=== PATIENT | female | born 1935 | race Caucasian/White ===

== ENCOUNTER 2019-04-27 13:11 | Inpatient (IN) ==
[2019-04-27] MEDS: DUONEB (A & A) INH PRN ×2 (16:07→23:52)
[2019-04-27 16:09] LABS: BASO# 0.06 X1000 (0.0-0.2); BASO% 0.5 % (0.0-0.8); EOS# 0.03 X1000 (0.0-0.7); EOS% 0.2 % (0.0-10.0); HEMATOCRIT 50.1 % (37.0-47.0); HEMOGLOBIN 15.5 g/dL (12.0-16.0); IMM GRAN# 0.13 X1000 (0.0-0.04); LYMPH# 1.78 X1000 (1.2-3.4); LYMPH% 14.2 % (20.5-51.1); MCH 29.2 PG (27-31); MCHC 30.9 g/dL (33-37); MCV 94.4 FL (81-99); MONO# 1.08 X1000 (0.11-0.59); MONO% 8.6 % (1.7-9.3); MPV 11.7 FL (7.4-10.4); NEUT# 9.47 X1000 (1.4-6.5); NEUT% 75.5 % (42.2-75.2); PLT 204 X1000 (130-400); RBC 5.31 XMIL (4.2-5.4); RDW 14.3 % (11.5-14.5); WBC 12.55 X1000 (4.8-10.8)
[2019-04-27 16:13] LABS: ALLEN TEST YES; BE 12.2 mmoll (-3.0-3.0); BLOOD TYPE ARTERIAL; HCO3-(ACT) 34.4 mmoll (20.0-26.0); O2HB 95.9 % (95.0-99.0); PO2(98.6) 114 mmHg (60-100); SAMPLE BLOOD; SAO2 98.9 % (95.0-100.0); THB 16.2 g/dL (11.5-17.4); pH(98.6) 7.36 (7.35-7.45)
[2019-04-27 16:14] LABS: MODALITY CANNULA
[2019-04-27 16:15] LABS: PCO2(98.6) 74 mmHg (35-45)
[2019-04-27 16:20] LABS: INR 2.18; PROTIME 24.8 Seconds (11.0-16.0)
--- NOTE | 2019-04-27 16:46 | EKG Report ---
Test Performed on : 04/27/2019 4:29:44 PM Test Reason : chest pain Blood Pressure : / mmHG Vent. Rate : 095 BPM Atrial Rate : 113 BPM P-R Int : 000 ms QRS Dur : 100 ms QT Int : 386 ms P-R-T Axes : 000 155 012 degrees QTc Int : 485 ms Atrial fibrillation. Right axis deviation Nonspecific ST abnormality Abnormal ECG When compared with ECG of 29-OCT-2017 11:40, ST no longer depressed in Anterior leads Unconfirmed Result
[2019-04-27 16:50] LABS: ALB/GLOB RATIO 1.8; ALBUMIN 4.6 g/dL (3.5-5.0); CALCIUM 9.8 mg/dL (8.8-10.2); CREATININE 1.1 mg/dL (0.5-0.9); POTASSIUM 3.7 mmol/L (3.5-5.1); TOTAL BILIRUBIN 0.73 mg/dL (0.20-1.00); TOTAL PROTEIN 7.1 g/dL (6.3-8.3)
[2019-04-27] MEDS ORDERED: SALINE LOCK IV FLUID XX ONE (18:39)
[2019-04-27] MEDS: PROTONIX IV SCH (20:18)
[2019-04-27] MEDS: ZIAC 5/6.25 MG PO SCH (20:18)
[2019-04-27] MEDS: KEPPRA PO SCH (20:18)
[2019-04-27] MEDS: NORCO-5 PO SCH (20:18)
[2019-04-27] MEDS: ZOSYN 3.375 GM in NS 50 ML IV SCH (20:20)
[2019-04-27] MEDS ORDERED: COUMADIN PO SCH (21:00)
--- NOTE | 2019-04-27 21:37 | HISTORY AND PHYSICAL ---
CHIEF COMPLAINT: Shortness of breath, cough, wheezing, hypoxemia. HISTORY OF PRESENT ILLNESS: She is an 83-year-old, white female, who came to my office with above symptoms. Patient is markedly wheezing, hypoxic, cyanotic, and chest x-ray, possible right lower lobe infiltrate, cardiomegaly. She has coarse crackles on the right side with coughing with yellow phlegm for the last one week. As a result, the patient is being hospitalized for acute impending hypoxic failure. PAST MEDICAL HISTORY: 1. Atrial fibrillation. 2. Diastolic heart failure. 3. COPD. 4. 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 5. Glucose intolerance. 6. Hyperlipidemia. 7. 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 PAST SURGICAL HISTORY: Thyroidectomy, hysterectomy, lipoma removed from the left arm, right cataract surgery. MEDICATIONS: Aspirin 81 mg daily, Ziac 5 mg p.o. b.i.d., Keppra 500 p.o. b.i.d., multivitamin 1 tablet daily, Lasix 20 mg daily, warfarin 2 to 4 mg alternating, amlodipine 2.5 daily, [place] 1 tablet p.o. b.i.d. ALLERGIES: Losartan, phenytoin, Benicar. VACCINATIONS: Pneumococcal vaccine 13 was given 07/25/2017. SOCIAL HISTORY: , one daughter. No smoking. No alcohol. FAMILY HISTORY: Noncontributory. Living will, DNR. The patient declined flu vaccine, as well as other health reminders which include mammography, DEXA scan, colonoscopy. REVIEW OF SYSTEMS: HEENT: No headache. No vision problem. No earache. No sore throat. Neck: No goiter or lymphadenopathy. No bruit. Cardiopulmonary: Shortness of breath, productive cough for one week. No chest pain. No PND. No orthopnea. No swelling of feet. Gastrointestinal: No nausea, vomiting, abdominal pain. Genitourinary: No history of hesitancy, frequency, dysuria. Neurologic: Wheelchair bound. No focal symptoms or weakness. PHYSICAL EXAMINATION: VITAL SIGNS: Temperature is 97.8 degrees, tachycardic, blood pressure is stable. Height 5 feet, 116 pounds. GENERAL: Mild respiratory distress. HEENT: Atraumatic, normocephalic. Pupils equal, reactive to light. NECK: Supple. JVD is elevated. CHEST: Coarse rhonchi on the right side. HEART: Distant heart sounds, irregular. GASTROINTESTINAL: Belly is soft, nontender. Good bowel sounds. EXTREMITIES: No peripheral edema or cyanosis. NEUROLOGIC: No obvious neurological deficits. INVESTIGATIONS: CBC: White cell count 12.5, hematocrit 50, platelets 204,000. PT 24, INR 2.1. ABG, pH is 7.36, pCO2 of 74, PO2 of 114 on 36%. Sodium 145, potassium 3.7, chloride 94, BUN 40, creatinine 1.1, glucose 176. Troponin is negative. ProBNP 7000. Chest x-ray: Cardiomegaly, right lower lobe infiltrate. ASSESSMENT AND PLAN: 1. An 83-year-old, white female, admitted to the hospital with upper respiratory infection symptoms, productive cough with underlying chronic obstructive pulmonary disease on oxygen, hypoxic, retaining hypercarbia. In the past, requiring BiPAP. Plan is bronchodilators, IV steroids, IV Levaquin, IV Zosyn. 2. Atrial fibrillation. On Coumadin. Continue to monitor daily PT/INR. 3. History of seizures from the stroke. On Keppra. 4. Chronic pain. On hydrocodone. 5. Reconcile home medications. 6. Vaccinations, up to date on pneumococcal vaccine. Declined influenza. 7. Next living will, Do Not Resuscitate. 8. Will follow up. cc: Roland Oconnor MD
[2019-04-27] MEDS: LEVAQUIN 500 MG/D5W 500 MG/100 ML IVPB IV SCH (21:51)
[2019-04-28] MEDS: ZOSYN 3.375 GM in NS 50 ML IV SCH ×4 (01:49→20:26)
[2019-04-28 07:25] LABS: INR 2.38; PROTIME 26.6 Seconds (11.0-16.0)
[2019-04-28] MEDS ORDERED: SOLU-MEDROL IV SCH (09:00)
[2019-04-28] MEDS: ASPIRIN PO SCH (09:06)
[2019-04-28] MEDS: KEPPRA PO SCH ×2 (09:06→20:25)
[2019-04-28] MEDS: NORCO-5 PO SCH ×2 (09:07→20:25)
[2019-04-28] MEDS: LASIX IV SCH (09:07)
[2019-04-28] MEDS: NORVASC PO SCH (09:07)
[2019-04-28] MEDS: THERA M PLUS PO SCH (09:08)
[2019-04-28] MEDS: ZIAC 5/6.25 MG PO SCH ×2 (09:08→20:26)
[2019-04-28] MEDS: PROTONIX IV SCH (20:27)
[2019-04-28] MEDS ORDERED: COUMADIN PO SCH (21:00)
[2019-04-28] MEDS: LEVAQUIN 500 MG/D5W 500 MG/100 ML IVPB IV SCH (21:14)
--- NOTE | 2019-04-28 22:59 | PROGRESS NOTE ---
DATE: 04/28/2019 SUBJECTIVE: The patient is a little better than yesterday. Decreased wheezing, shortness of breath. No chest pain. OBJECTIVE: Temperature is 97.4 degrees, pulse 84, blood pressure is stable, 96%. Not in respiratory distress. Decreased rhonchi on the right side. Heart sounds are irregular. Belly is soft, nontender. No edema noted. LABORATORY DATA: PT 26, INR 2.38. ASSESSMENT AND PLAN: 1. Acute shortness of breath, chronic obstructive pulmonary disease exacerbation with bronchopneumonia. Continue on intravenous antibiotics with Levaquin, intravenous steroids and intravenous Zosyn. 2. Chronic atrial fibrillation, on warfarin and rate control. 3. Continue home medicines. 4. Status post left hand hematoma evacuation, stable. 5. Continue to monitor PT/INR. 6. Living Will: Do Not Resuscitate/Allow Natural . 7. We will repeat chest x-ray in the morning and also decrease the FIO2 to 2 L, since she is retaining carbon dioxide. 8. We will follow up. Level of documentation was 25 minutes. cc: Roland Oconnor MD
[2019-04-28] MEDS: DUONEB (A & A) INH PRN (23:23)
[2019-04-29] MEDS ORDERED: XANAX PO ONE (01:03)
[2019-04-29] MEDS: ZOSYN 3.375 GM in NS 50 ML IV SCH ×4 (01:30→19:39)
[2019-04-29 07:31] LABS: BASO# 0.03 X1000 (0.0-0.2); BASO% 0.3 % (0.0-0.8); HEMATOCRIT 50.4 % (37.0-47.0); IMM GRAN# 0.22 X1000 (0.0-0.04); IMM GRAN% 2.3 % (0.0-0.5); LYMPH# 0.82 X1000 (1.2-3.4); LYMPH% 8.4 % (20.5-51.1); MCH 28.7 PG (27-31); MCHC 29.8 g/dL (33-37); MCV 96.6 FL (81-99); MONO# 0.88 X1000 (0.11-0.59); MPV 11.5 FL (7.4-10.4); NEUT# 7.81 X1000 (1.4-6.5); PLT 207 X1000 (130-400); RBC 5.22 XMIL (4.2-5.4); RDW 13.9 % (11.5-14.5); WBC 9.76 X1000 (4.8-10.8)
[2019-04-29 07:53] LABS: CALCIUM 9.8 mg/dL (8.8-10.2); CREATININE 1.4 mg/dL (0.5-0.9); POTASSIUM 3.4 mmol/L (3.5-5.1)
--- NOTE | 2019-04-29 08:18 | Diag Imaging Result Doc PS360 ---
EXAM: CHEST-2 VIEWS INDICATION: hypoxia TECHNIQUE: 2 views COMPARISON: 11/04/2017 FINDINGS: The lungs are grossly clear. There is no discrete pleural fluid collection or pneumothorax. There is stable cardiomegaly. Central vasculature is unremarkable. IMPRESSION: Stable cardiomegaly. No definite acute chest pathology. Electronically signed by Han Bonner 04/29/2019 8:16 AM
[2019-04-29] MEDS: KEPPRA PO SCH ×2 (08:29→20:48)
[2019-04-29] MEDS: ZIAC 5/6.25 MG PO SCH ×2 (08:29→20:47)
[2019-04-29] MEDS: NORVASC PO SCH (08:29)
[2019-04-29] MEDS: LASIX IV SCH (08:30)
[2019-04-29] MEDS: THERA M PLUS PO SCH (08:30)
[2019-04-29] MEDS: SOLU-MEDROL IV SCH (08:30)
[2019-04-29] MEDS: ASPIRIN PO SCH (08:30)
[2019-04-29] MEDS ORDERED: KLOR-CON PO ONE (08:33)
[2019-04-29 09:09] LABS: ALLEN TEST YES; BE 13.3 mmoll (-3.0-3.0); BLOOD TYPE ARTERIAL; HCO3-(ACT) 35.1 mmoll (20.0-26.0); METHB 1.1 % (0.0-1.5); O2(CT) 20.5 mL/dL (15.0-23.0); O2HB 91.4 % (95.0-99.0); PO2(98.6) 64 mmHg (60-100); SAMPLE BLOOD; SAO2 94.4 % (95.0-100.0); pH(98.6) 7.37 (7.35-7.45)
[2019-04-29 09:10] LABS: MODALITY ROOM AIR; PCO2(98.6) 74 mmHg (35-45)
[2019-04-29] MEDS: NORCO-5 PO SCH ×2 (09:43→20:47)
[2019-04-29 20:44] LABS: ALLEN TEST YES; BE 13.7 mmoll (-3.0-3.0); BLOOD TYPE ARTERIAL; HCO3-(ACT) 35.4 mmoll (20.0-26.0); METHB 1.3 % (0.0-1.5); O2(CT) 20.4 mL/dL (15.0-23.0); PO2(98.6) 60 mmHg (60-100); SAMPLE BLOOD; SAO2 92.9 % (95.0-100.0); THB 16.2 g/dL (11.5-17.4); pH(98.6) 7.38 (7.35-7.45)
[2019-04-29] MEDS: LEVAQUIN 500 MG/D5W 500 MG/100 ML IVPB IV SCH (20:45)
[2019-04-29 20:46] LABS: MODALITY CANNULA; O2HB 89.7 % (95.0-99.0); PCO2(98.6) 73 mmHg (35-45)
[2019-04-29] MEDS: PROTONIX IV SCH (20:48)
--- NOTE | 2019-04-29 21:02 | PROGRESS NOTE ---
DATE: 04/29/2019 SUBJECTIVE: The patient is a little bit hyper with steroids, not able to sleep. Continues to have mild respiratory distress and no chest pain. PHYSICAL EXAMINATION: Temperature is 97 degrees, tachycardic, vitals are stable.HEENT: Mild using accessory muscles of the neck. Chest: There is decreased rhonchi. Irregular heart sounds. No peripheral edema. INVESTIGATIONS: CBC: White cell count 9.7, hematocrit 50 platelets 207,000. PT 33, INR 3.0. ABG: PH is 7.34, pCO2 of 74, PO2 of 64 on 28%. Sodium 147, potassium 3.4, chloride 95, BUN 45, creatinine 1.4. ASSESSMENT AND PLAN: 1. Acute respiratory failure due to hypercarbia with underlying chronic obstructive pulmonary disease and congestive heart failure. 2. Chronic atrial fibrillation. Plan is IV fluids, decreased IV steroids, decrease to O2 of 2 L. The patient is refusing noninvasive ventilator support, a DNR 1. We will hold the Coumadin and continue on bronchodilators. LEVEL OF DOCUMENTATION: 25 minutes. cc: Roland Oconnor MD
[2019-04-30] MEDS: ZOSYN 3.375 GM in NS 50 ML IV SCH ×4 (01:40→21:34)
[2019-04-30 07:18] LABS: INR 3.28; PROTIME 34.4 Seconds (11.0-16.0)
[2019-04-30] MEDS: SOLU-MEDROL IV SCH (08:21)
[2019-04-30] MEDS: LASIX IV SCH (08:22)
[2019-04-30] MEDS: ASPIRIN PO SCH (08:22)
[2019-04-30] MEDS: ZIAC 5/6.25 MG PO SCH ×2 (08:22→20:56)
[2019-04-30] MEDS: KEPPRA PO SCH ×2 (08:23→20:56)
[2019-04-30] MEDS: NORCO-5 PO SCH ×2 (08:23→20:58)
[2019-04-30] MEDS: THERA M PLUS PO SCH (08:24)
[2019-04-30] MEDS: NORVASC PO SCH (08:24)
[2019-04-30] MEDS: DUONEB (A & A) INH PRN (15:13)
[2019-04-30] MEDS: PROTONIX IV SCH (20:56)
[2019-04-30] MEDS: LEVAQUIN 500 MG/D5W 500 MG/100 ML IVPB IV SCH (20:56)
[2019-04-30] MEDS: SODIUM CHLORIDE 0.9% INJ SCH (20:57)
--- NOTE | 2019-04-30 21:44 | PROGRESS NOTE ---
DATE: 04/30/2019 SUBJECTIVE: The patient last night was confused. Increased work of breathing, appears to be mild respiratory distress, shaking with CO2 narcosis. The patient is sitting upright position. REVIEW OF SYSTEMS: Confusion and shortness of breath. No chest pain. OBJECTIVE: On exam, the patient is afebrile, tachycardic, in atrial fibrillation. Blood pressure is 144/82. Mild respiratory distress noted. Chest: Bilateral air entry, very poor. Decreased rhonchi. Heart sounds are irregular. No peripheral edema noted. LABORATORY DATA: INR 3.28. ASSESSMENT: 1. Acute respiratory failure due to underlying chronic obstructive pulmonary disease. 2. Carbon dioxide narcosis. 3. Chronic atrial fibrillation. 4. Hypertension. 5. Seizures. PLAN: 1. BiPAP recommended. 2. Oxygen 2 to 3 L. 3. Decrease the IV steroids. Continue bronchodilators, IV Lasix and IV antibiotics. 4. Living Will: Do Not Resuscitate/Allow Natural . 5. We will do the blood test in the morning. INR is increasing. Hold the Coumadin due to underlying antibiotics. Level of documentation 25 minutes. cc: Roland Oconnro MD
[2019-05-01] MEDS: ZOSYN 3.375 GM in NS 50 ML IV SCH ×3 (05:45→18:33)
[2019-05-01 07:00] LABS: BASO# 0.03 X1000 (0.0-0.2); BASO% 0.2 % (0.0-0.8); HEMATOCRIT 49.3 % (37.0-47.0); HEMOGLOBIN 14.6 g/dL (12.0-16.0); IMM GRAN# 0.17 X1000 (0.0-0.04); IMM GRAN% 1.4 % (0.0-0.5); LYMPH# 0.98 X1000 (1.2-3.4); LYMPH% 7.9 % (20.5-51.1); MCH 28.9 PG (27-31); MCHC 29.6 g/dL (33-37); MCV 97.6 FL (81-99); MONO# 1.37 X1000 (0.11-0.59); MPV 11.6 FL (7.4-10.4); NEUT# 9.92 X1000 (1.4-6.5); NEUT% 79.5 % (42.2-75.2); PLT 217 X1000 (130-400); RBC 5.05 XMIL (4.2-5.4); RDW 13.8 % (11.5-14.5); WBC 12.47 X1000 (4.8-10.8)
[2019-05-01 07:53] LABS: CALCIUM 9.4 mg/dL (8.8-10.2); CREATININE 1.1 mg/dL (0.5-0.9); POTASSIUM 2.7 mmol/L (3.5-5.1)
[2019-05-01] MEDS: ASPIRIN PO SCH (08:09)
[2019-05-01] MEDS: NORVASC PO SCH (08:09)
[2019-05-01] MEDS: KEPPRA PO SCH ×2 (08:10→20:13)
[2019-05-01] MEDS: LASIX IV SCH (08:10)
[2019-05-01] MEDS: THERA M PLUS PO SCH (08:10)
[2019-05-01] MEDS: ZIAC 5/6.25 MG PO SCH ×2 (08:10→20:13)
[2019-05-01] MEDS: SOLU-MEDROL IV SCH (08:10)
[2019-05-01] MEDS: NORCO-5 PO SCH ×2 (08:10→20:13)
[2019-05-01] MEDS ORDERED: KLOR-CON PO ONE (13:14)
[2019-05-01] MEDS: POTASSIUM CHLORIDE 10 MEQ in D5W 1,000 ML IV SCH (15:34)
[2019-05-01] MEDS: DUONEB (A & A) INH PRN ×2 (15:45→19:53)
--- NOTE | 2019-05-01 17:38 | PROGRESS NOTE ---
DATE: 05/01/2019 SUBJECTIVE: The patient continues to have shortness of breath, using BiPAP finally, less dyspneic. OBJECTIVE: Not in respiratory distress. HEENT: Within normal limits. Neck: Supple. chest: Bilateral air entry. Irregular heart sounds. Belly is soft, nontender. No obvious deficits. INVESTIGATIONS: White cell count 12.4, hematocrit 49.3, platelet 217,000. INR 3.28. Sodium 151, potassium 2.7, BUN 50, creatinine 1.1. ASSESSMENT AND PLAN: 1. Acute chronic obstructive pulmonary disease exacerbation. 2. Congestive heart failure. 3. Atrial fibrillation. 4. History of cerebrovascular accident. 5. Hypokalemia. 6. Hyponatremia. I am going to hold the Lasix. Will slowly give D5W 50 mL/h. 7. Replace the potassium. Continue present treatment. Living will, do not resuscitate. LEVEL OF DOCUMENTATION: 25 minutes. cc: Roland Oconnor MD
[2019-05-01] MEDS: PROTONIX IV SCH (20:11)
[2019-05-01] MEDS: LEVAQUIN 500 MG/D5W 500 MG/100 ML IVPB IV SCH (21:50)
[2019-05-02] MEDS: ZOSYN 3.375 GM in NS 50 ML IV SCH ×4 (01:14→18:04)
[2019-05-02] MEDS: ZIAC 5/6.25 MG PO SCH ×2 (09:04→21:31)
[2019-05-02] MEDS: NORCO-5 PO SCH ×2 (09:04→21:31)
[2019-05-02] MEDS: NORVASC PO SCH (09:04)
[2019-05-02] MEDS: SOLU-MEDROL IV SCH (09:04)
[2019-05-02] MEDS: ASPIRIN PO SCH (09:04)
[2019-05-02] MEDS: KEPPRA PO SCH ×2 (09:04→21:31)
[2019-05-02] MEDS: THERA M PLUS PO SCH (09:04)
[2019-05-02] MEDS: POTASSIUM CHLORIDE 10 MEQ in D5W 1,000 ML IV SCH (13:41)
[2019-05-02] MEDS: DUONEB (A & A) INH PRN ×2 (14:04→22:05)
--- NOTE | 2019-05-02 15:46 | PROGRESS NOTE ---
DATE: 05/02/2019 Patient is little better, using off and on BiPAP machine, decreased shortness of breath. EXAM: Temperature is 98 degrees, pulse 97, blood pressure stable and decreased work of breathing and prolonged expiratory phase. Irregular heart sounds. No peripheral edema. I's and O's not able to obtain. INVESTIGATIONS: None reported. ASSESSMENT AND PLAN: 1. Chronic obstructive pulmonary disease exacerbation stable. 2. CO2 narcosis. Encouraged to use BiPAP machine. 3. Azotemia on the intravenous dextrose. Potassium was replaced and repeat the labs in the morning. Continue present treatment. Living will DNR. LEVEL OF DOCUMENTATION: 25 minutes. cc: Roland Oconnor MD
[2019-05-02] MEDS: LEVAQUIN 500 MG/D5W 500 MG/100 ML IVPB IV SCH (21:30)
[2019-05-02] MEDS: PROTONIX IV SCH (21:31)
[2019-05-03] MEDS: ZOSYN 3.375 GM in NS 50 ML IV SCH ×4 (01:41→18:27)
[2019-05-03] MEDS: POTASSIUM CHLORIDE 10 MEQ in D5W 1,000 ML IV SCH (06:45)
[2019-05-03 06:56] LABS: BASO# 0.03 X1000 (0.0-0.2); BASO% 0.2 % (0.0-0.8); EOS# 0.03 X1000 (0.0-0.7); EOS% 0.2 % (0.0-10.0); HEMATOCRIT 50.3 % (37.0-47.0); HEMOGLOBIN 15.1 g/dL (12.0-16.0); IMM GRAN# 0.27 X1000 (0.0-0.04); LYMPH# 1.26 X1000 (1.2-3.4); LYMPH% 9.1 % (20.5-51.1); MCH 28.9 PG (27-31); MCV 96.4 FL (81-99); MONO# 1.26 X1000 (0.11-0.59); MONO% 9.1 % (1.7-9.3); MPV 11.7 FL (7.4-10.4); NEUT# 10.96 X1000 (1.4-6.5); NEUT% 79.4 % (42.2-75.2); PLT 217 X1000 (130-400); RBC 5.22 XMIL (4.2-5.4); WBC 13.81 X1000 (4.8-10.8)
[2019-05-03 07:30] LABS: CREATININE 1.1 mg/dL (0.5-0.9); POTASSIUM 3.7 mmol/L (3.5-5.1)
[2019-05-03] MEDS: DUONEB (A & A) INH PRN (07:48)
[2019-05-03] MEDS: NORVASC PO SCH (08:30)
[2019-05-03] MEDS: KEPPRA PO SCH ×2 (08:30→20:51)
[2019-05-03] MEDS: THERA M PLUS PO SCH (08:31)
[2019-05-03] MEDS: ASPIRIN PO SCH (08:31)
[2019-05-03] MEDS: ZIAC 5/6.25 MG PO SCH ×2 (08:31→20:51)
[2019-05-03] MEDS: NORCO-5 PO SCH ×2 (08:31→20:51)
[2019-05-03] MEDS: SOLU-MEDROL IV SCH (14:20)
[2019-05-03] MEDS: LEVAQUIN 500 MG/D5W 500 MG/100 ML IVPB IV SCH (20:47)
[2019-05-03] MEDS: SODIUM CHLORIDE 0.9% INJ SCH (20:49)
[2019-05-03] MEDS: PROTONIX IV SCH (20:49)
--- NOTE | 2019-05-03 21:18 | PROGRESS NOTE ---
DATE: 05/03/2019 SUBJECTIVE: The patient is doing a little better after taking a lot of fluids. Decreased shortness of breath. PHYSICAL EXAMINATION: Temperature is 98 degrees, tachycardic, vitals are stable. HEENT exam within normal limits. Neck is supple. Bilateral air entry. Irregular heart sounds. No peripheral edema. INVESTIGATIONS: White cell count 13, hematocrit 50, platelets 217,000. Sodium 147, potassium 3.7, BUN 45, creatinine 1.1, glucose 114. ASSESSMENT AND PLAN: 1. Chronic obstructive pulmonary disease exacerbation. Decrease the IV steroids. 2. Hyponatremic dehydration. Dextrose was given. Oral intake. 3. Chronic obstructive pulmonary disease. Continue on steroids, IV antibiotics, and Zosyn, bronchodilators. 4. Chronic atrial fibrillation, on Coumadin on hold and we will repeat the labs in the morning which includes CBC, SMA-7, PT/INR. LEVEL OF DOCUMENTATION: 25 minutes. cc: Roland Oconnor MD
[2019-05-04] MEDS: DUONEB (A & A) INH PRN ×3 (00:44→09:33)
[2019-05-04] MEDS: ZOSYN 3.375 GM in NS 50 ML IV SCH ×3 (00:50→16:59)
[2019-05-04 06:56] LABS: BASO# 0.04 X1000 (0.0-0.2); BASO% 0.3 % (0.0-0.8); HEMATOCRIT 49.8 % (37.0-47.0); HEMOGLOBIN 15.3 g/dL (12.0-16.0); IMM GRAN# 0.35 X1000 (0.0-0.04); LYMPH# 1.04 X1000 (1.2-3.4); MCH 29.1 PG (27-31); MCHC 30.7 g/dL (33-37); MCV 94.9 FL (81-99); MONO# 0.86 X1000 (0.11-0.59); MONO% 7.5 % (1.7-9.3); MPV 11.6 FL (7.4-10.4); NEUT# 9.21 X1000 (1.4-6.5); NEUT% 80.2 % (42.2-75.2); PLT 197 X1000 (130-400); RBC 5.25 XMIL (4.2-5.4); RDW 13.9 % (11.5-14.5)
[2019-05-04 07:04] LABS: INR 2.02; PROTIME 23.4 Seconds (11.0-16.0)
[2019-05-04 07:43] LABS: CALCIUM 9.7 mg/dL (8.8-10.2); CREATININE 1.1 mg/dL (0.5-0.9); POTASSIUM 3.7 mmol/L (3.5-5.1)
[2019-05-04] MEDS: ASPIRIN PO SCH (08:43)
[2019-05-04] MEDS: KEPPRA PO SCH (08:43)
[2019-05-04] MEDS: THERA M PLUS PO SCH (08:43)
[2019-05-04] MEDS: NORVASC PO SCH (08:44)
[2019-05-04] MEDS: ZIAC 5/6.25 MG PO SCH ×2 (08:44→21:30)
[2019-05-04] MEDS: SOLU-MEDROL IV SCH (08:46)
[2019-05-04] MEDS: NORCO-5 PO SCH ×2 (08:50→22:46)
[2019-05-04] MEDS ORDERED: ATIVAN PO ONE (11:22)
[2019-05-04] MEDS ORDERED: XANAX PO ONE (11:31)
[2019-05-04] MEDS ORDERED: NS NEB INH SCH (17:30)
[2019-05-04] MEDS: LEVAQUIN 500 MG/D5W 500 MG/100 ML IVPB IV SCH (21:31)
--- NOTE | 2019-05-04 21:33 | PROGRESS NOTE ---
DATE: 05/04/2019 SUBJECTIVE: Patient anxious to go home. Decreased respiratory distress. OBJECTIVE: Chest: Bilateral air entry, decreased rhonchi. Heart: Irregular heart sounds, atrial fibrillation, tachycardic. Rest of the exam is benign. Vital signs: Temperature is 97 degrees, heart rate is 100. Vitals are stable. INVESTIGATIONS: White cell count 11, hematocrit 49, platelets 197,000. PT 23, INR 2.0. Sodium 148, potassium 3.7, chloride 98, BUN 39, creatinine 1.1. ASSESSMENT AND PLAN: 1. The patient was stable. Discharged home. Encourage the patient use the oral intake and obviously patient had argument with daughter and the nurses are calling. The heart rate is gone up to 150 with rapid atrial fibrillation and the patient was given some Xanax and hold the discharge. The patient has been on beta blockers and amlodipine for blood pressure and azotemia. Slowly oral intake. 2. On Coumadin. Restart on Coumadin. INR is 2.0. We will repeat the EKG in the morning. We will discuss the family about disposition. LEVEL OF DOCUMENTATION: 25 minutes. cc: Roland Oconnor MD
[2019-05-04] MEDS: XOPENEX NEB INH SCH (22:03)
[2019-05-04] MEDS: PROTONIX IV SCH (22:49)
[2019-05-05] MEDS: XOPENEX NEB INH SCH ×4 (03:41→23:10)
--- NOTE | 2019-05-05 07:29 | EKG Report ---
Test Performed on : 05/05/2019 07:10:26 AM Test Reason : cp Blood Pressure : / mmHG Vent. Rate : 104 BPM Atrial Rate : 105 BPM P-R Int : 000 ms QRS Dur : 092 ms QT Int : 372 ms P-R-T Axes : 000 102 082 degrees QTc Int : 489 ms Atrial fibrillation. with rapid ventricular response. Indeterminate axis Incomplete right bundle branch block Abnormal ECG When compared with ECG of 27-APR-2019 16:29, Incomplete right bundle branch block is now present Nonspecific T wave abnormality no longer evident in Inferior leads T wave amplitude has decreased in Anterior leads Unconfirmed Result
[2019-05-05] MEDS ORDERED: LANOXIN IV ONE ×3 (08:25→17:00)
[2019-05-05] MEDS ORDERED: D5W 1,000 ML IV SCH (08:30)
[2019-05-05] MEDS: NORVASC PO SCH (08:48)
[2019-05-05] MEDS: THERA M PLUS PO SCH (08:49)
[2019-05-05] MEDS: NORCO-5 PO SCH ×2 (08:49→21:12)
[2019-05-05] MEDS: ZIAC 5/6.25 MG PO SCH ×2 (08:49→21:13)
[2019-05-05] MEDS: ASPIRIN PO SCH (08:49)
[2019-05-05 08:56] LABS: BASO# 0.07 X1000 (0.0-0.2); BASO% 0.4 % (0.0-0.8); EOS# 0.13 X1000 (0.0-0.7); EOS% 0.8 % (0.0-10.0); HEMATOCRIT 53.6 % (37.0-47.0); HEMOGLOBIN 16.1 g/dL (12.0-16.0); IMM GRAN# 0.41 X1000 (0.0-0.04); IMM GRAN% 2.5 % (0.0-0.5); LYMPH# 2.12 X1000 (1.2-3.4); LYMPH% 13.2 % (20.5-51.1); MCH 28.8 PG (27-31); MCV 95.7 FL (81-99); MONO# 1.29 X1000 (0.11-0.59); MPV 11.7 FL (7.4-10.4); NEUT# 12.07 X1000 (1.4-6.5); NEUT% 75.1 % (42.2-75.2); PLT 208 X1000 (130-400); RDW 14.1 % (11.5-14.5); WBC 16.09 X1000 (4.8-10.8)
[2019-05-05 09:00] LABS: INR 1.72; PROTIME 20.5 Seconds (11.0-16.0)
[2019-05-05] MEDS: ZOSYN 3.375 GM in NS 50 ML IV SCH ×3 (09:00→21:12)
[2019-05-05 09:09] LABS: ALB/GLOB RATIO 1.5; ALBUMIN 3.9 g/dL (3.5-5.0); POTASSIUM 3.6 mmol/L (3.5-5.1); TOTAL BILIRUBIN 1.11 mg/dL (0.20-1.00); TOTAL PROTEIN 6.5 g/dL (6.3-8.3)
[2019-05-05] MEDS: SOLU-MEDROL IV SCH (14:09)
--- NOTE | 2019-05-05 21:47 | PROGRESS NOTE ---
DATE: 05/05/2019 SUBJECTIVE: Yesterday the patient was supposed to go home, which has been stopped. The patient has rapid atrial fibrillation. She was on Lanoxin before. She is also dehydrated. Decreased work of breathing. OBJECTIVE: Vital signs are stable. Decreased work of breathing. Chest has bilateral air entry. Irregular heart sounds. Belly is soft, nontender. No obvious deficits. LABORATORY DATA: CBC: White cell count 16, hematocrit 53, platelets 208,000. PTT 20, INR 1.7. Sodium 147, potassium 3.6, BUN 36, creatinine 1.0. ASSESSMENT AND PLAN: 1. Rapid atrial fibrillation. We will give her the Lanoxin loading dose and p.o. Lanoxin, and continue on Ziac. 2. Hypertension, on amlodipine and Ziac. 3. Dehydration. Gentle hydration, D5 for 1 L. 4. We will restart on Coumadin 2 mg daily. 5. Chronic obstructive pulmonary disease. On intravenous antibiotics. We will repeat the labs in the morning. Level of documentation 25 minutes. cc: Roland Oconnor MD
[2019-05-05] MEDS: LEVAQUIN 500 MG/D5W 500 MG/100 ML IVPB IV SCH (23:24)
[2019-05-06] MEDS: ZOSYN 3.375 GM in NS 50 ML IV SCH ×5 (00:38→20:22)
[2019-05-06] MEDS: XOPENEX NEB INH SCH ×4 (03:50→22:53)
--- NOTE | 2019-05-06 07:50 | EKG Report ---
Test Performed on : 05/06/2019 07:23:35 AM Test Reason : cp Blood Pressure : / mmHG Vent. Rate : 062 BPM Atrial Rate : 000 BPM P-R Int : 000 ms QRS Dur : 100 ms QT Int : 394 ms P-R-T Axes : 000 118 000 degrees QTc Int : 399 ms Atrial fibrillation. Right axis deviation Incomplete right bundle branch block Possible Anterior infarct , age undetermined Abnormal ECG When compared with ECG of 05-MAY-2019 07:10, Vent. rate has decreased BY 42 BPM Nonspecific T wave abnormality now evident in Inferior leads QT has shortened Unconfirmed Result
[2019-05-06 08:02] LABS: CALCIUM 9.3 mg/dL (8.8-10.2); CREATININE 0.9 mg/dL (0.5-0.9); POTASSIUM 3.8 mmol/L (3.5-5.1)
[2019-05-06] MEDS: ZIAC 5/6.25 MG PO SCH ×2 (08:48→20:23)
[2019-05-06] MEDS: ASPIRIN PO SCH (08:48)
[2019-05-06] MEDS: LANOXIN PO SCH (08:48)
[2019-05-06] MEDS: NORVASC PO SCH (08:48)
[2019-05-06] MEDS: THERA M PLUS PO SCH (08:48)
[2019-05-06] MEDS: PROTONIX PO SCH (08:48)
[2019-05-06] MEDS: NORCO-5 PO SCH ×2 (08:49→20:23)
[2019-05-06] MEDS ORDERED: NS 250 ML ONE (16:12)
[2019-05-06] MEDS: LEVAQUIN 500 MG/D5W 500 MG/100 ML IVPB IV SCH (20:23)
--- NOTE | 2019-05-06 22:47 | PROGRESS NOTE ---
DATE: 05/06/2019 SUBJECTIVE: The patient is a little better, slowly improving. EKG was done, it showed atrial fibrillation, rate well controlled after adding Lanoxin. Slow hydration was given. OBJECTIVE: Vital signs: Stable. HEENT: Within normal limits. Neck: Supple. Chest: Poor bilateral air entry. Cardiovascular: Irregular heart sounds. ASSESSMENT AND PLAN: 1. Dehydration, better. 2. Chronic obstructive pulmonary disease, better. 3. Atrial fibrillation, rate well controlled. Started on warfarin 2 mg daily. Continue present treatment. If she is stable in next 24 hours will discharge in the morning. LEVEL OF DOCUMENTATION: 25 minutes. cc: Roland Oconnor MD
[2019-05-07] MEDS: XOPENEX NEB INH SCH ×2 (03:31→07:32)
[2019-05-07] MEDS: ZOSYN 3.375 GM in NS 50 ML IV SCH ×2 (04:32→10:33)
[2019-05-07 07:39] VITALS: BP 149/67
[2019-05-07] MEDS: ZIAC 5/6.25 MG PO SCH (10:29)
[2019-05-07] MEDS: NORVASC PO SCH (10:29)
[2019-05-07] MEDS: PROTONIX PO SCH (10:29)
[2019-05-07] MEDS: ASPIRIN PO SCH (10:30)
[2019-05-07] MEDS: LANOXIN PO SCH (10:30)
[2019-05-07] MEDS: NORCO-5 PO SCH (10:30)
[2019-05-07] MEDS: THERA M PLUS PO SCH (10:30)
--- NOTE | 2019-05-11 08:09 | DISCHARGE SUMMARY ---
ADMISSION DATE: 04/27/2019 DISCHARGE DATE: 05/07/2019 DISCHARGING DIAGNOSIS: Acute chronic obstructive pulmonary disease exacerbation. SECONDARY DIAGNOSES: 1. Diastolic heart failure. 2. Chronic atrial fibrillation. 3. Glucose intolerance. 4. Hyperlipidemia. 5. History of right cerebellar stroke and left parietal stroke. 6. Meningioma of left cerebellar area. 7. Hyponatremic dehydration. BRIEF HISTORY: Please see the H and P that was done on 04/27/2019. In brief, she is an 83-year- old white female basically admitted to the hospital with shortness of breath, congestion, and cyanotic on oxygen. She has rhonchi mostly on the right side. Chest x-ray showed cardiomegaly with increased pulmonary vasculature. She also has elevated proBNP. She was treated for combination of both COPD exacerbation and decompensation of diastolic heart failure. HOSPITAL COURSE: She was given Lasix, oxygen, intermittent BiPAP, IV steroids, and IV antibiotics. She has persistent rapid atrial fibrillation. She was given Lanoxin. She also dehydrated with over-diuresis. Gentle hydration was given. The patient has a living will DNR. She is on Coumadin for prevention of strokes, and it has been adjusted. At the time of discharge, patient is stable. LABORATORY: CBC: White cell count 16, hematocrit 53, platelets 208,000, PTT 20, and INR 1.72. ABG on 2 L, pH is 7.38, pCO2 73, PO2 60, sodium 147, potassium 3.8, chloride 100, BUN 27, creatinine 0.9, and free T4 1.52. DISCHARGE INSTRUCTIONS: 1. Pneumococcal vaccine was given 07/25/2017. 2. Aspirin 81 mg daily. 3. Ziac 5 mg p.o. b.i.d. 4. Keppra 500 p.o. b.i.d. 5. Multivitamin 1 tablet in the morning. 6. Warfarin 2 mg daily. 7. Amlodipine 2.5 daily. 8. [place] 5 b.i.d. 9. DuoNeb q.6h as needed. 10. Spiriva 1 puff daily. 11. Breo 1 puff daily. 12. Lanoxin 125 mcg daily. 13. Living Will, DNR. 14. Follow up in my office in 1 week. cc: Roland Oconnor MD
== END 2019-05-07 11:42 | disposition home or self-care (01) | DRG 190 ==
LOC: DIRADM 13:11 → 3N 15:38
PROVIDERS: ADMIT Internal Medicine; ATTEND Internal Medicine